=== PATIENT | female | born 1940 | race African-American/Black ===

== ENCOUNTER → 2017-02-12 | Outpatient (CLI) | payer MEDICARE ==
[2017-01-22 05:51] VITALS: BP 128/73
[~2017-02-12] MED LIST: AMLO5TAB2 PO; ASPI-482 PO; CRESTOR20 MG PO; IRBE300T3 PO; METH2.5T25 PO; METO-269 PO; METO25TA4 PO; PANT40TA3 PO; PARO10TA24 PO; TRAM50TA PO; TRIA1CAP3 PO; VALS160T3 PO; [UNRECOGNIZED DRUG - CODE] IM
--- NOTE | 2017-02-12 11:06 | RAD ---
Indication:Left-sided abdominal pain Grayscale images of the abdomen were obtained. Comparison none note is made of a CT examination of the abdomen and pelvis 03/30/2016 Liver:No focal mass is seen in the visualized liver. The main portal vein is minimally prominent Gallbladder:Normal. The common bile duct diameter of approximately 6 mm is normal Spleen:not optimally visualized but grossly normal Pancreas:As visualized normal Kidneys:Somewhat small but otherwise normal Abdominal aorta and IVC:Normal Ancillary findings:None Impression:No significant finding on abdominal ultrasound
--- NOTE | 2017-02-12 11:11 | RAD ---
Indication pain. Transabdominal scans were obtained. The history of hysterectomy several years earlier has been provided. The status of the ovaries is uncertain. Note is made of a CT examination of the abdomen and pelvis 03/30/2016. The uterus is not seen compatible with the surgical history. No significant free fluid was present. A definite abnormality is not apparent IMPRESSION: No acute or significant finding seen on pelvic ultrasound exam
== END | disposition home or self-care (01) ==
LOC: US 09:23
PROVIDERS: ATTEND Internal Medicine
DX: R06.89 Other abnormalities of breathing (principal); R10.11 Right upper quadrant pain; R10.12 Left upper quadrant pain; R10.31 Right lower quadrant pain
CPT/HCPCS: 76700; 76856

== ENCOUNTER 2017-10-02 03:38 | Emergency (ER) | payer MEDICARE, MEDICAID ==
[~2017-10-02] VITALS: Ht 165.1 cm; Wt 68.0 kg
[~2017-10-02 03:38] MED LIST changes: +CARV12.5 PO; +LOSA25TA4 PO; -PARO10TA24 PO; +PARO10TA57 PO; +[UNRECOGNIZED DRUG - CODE] IM; -[UNRECOGNIZED DRUG - CODE] IM
[2017-10-02 03:50] VITALS: BP 165/82
[2017-10-02] MEDS ORDERED: CEPH-264 PO (04:07)
[2017-10-02] MEDS ORDERED: METH4TAB2 PO (04:07)
--- NOTE | 2017-10-02 04:07 | PHYS DOC ---
Past Medical History Past Medical History: High Cholesterol, Hypertension, Other Additional Past Medical Histor: bleeding ulcer with bloot transfusion; rheumatic heart disease Past Surgical History: Hysterectomy, Other Additional Past Surgical Histo: hemorrhoidectomy Additional Information: Non smoker Alcohol Use: Rarely Drug Use: None Adult General Chief Complaint Chief Complaint: UPPER EXTREMITY SWELLING HPI HPI Patient is a 77 year old female who presents with bilateral hand swelling; Left > right. She was in her storage area "digging around' and then on evening she noticed swelling. The left hand "had some bumps on it." No other lesions. The left hand is more swollen and now is warm. The swelling extends up her forearm. She can feel her fingers and move them. her right hand has mild swelling; no wounds. No fever. She feels well otherwise. She receives Bicillin monthly "forever" for RHD. Review of Systems Review of Systems Constitutional: Denies fever or chills Eyes: Denies change in visual acuity, redness, or eye pain HENT: Denies nasal congestion or sore throat Respiratory: Denies cough or shortness of breath Cardiovascular: No chest pain GI: Denies abdominal pain, nausea, vomiting, bloody stools or diarrhea : Denies dysuria or hematuria Musculoskeletal: Denies back pain or joint pain. Hands swollen. Integument: Denies rash or skin lesions Neurologic: Denies headache, focal weakness or sensory changes All other systems were reviewed and found to be within normal limits, except as documented in this note. Current Medications Current Medications Current Medications Medications (Trade) Dose Ordered Sig/Sandy Start Time Stop Time Status Last Admin Dose Admin Cephalexin HCl (Keflex) 500 mg 1X ONCE 10/02/17 04:30 10/02/17 04:31 Prednisone (Prednisone) 30 mg 1X ONCE 10/02/17 04:30 10/02/17 04:31 Allergies Allergies Allergies Coded Allergies Type Severity Reaction Last Updated Verified Sulfa (Sulfonamide Antibiotics) Allergy Intermediate 09/13/17 Yes acetaminophen Allergy Intermediate 09/13/17 Yes codeine Allergy Intermediate 09/13/17 Yes propoxyphene Allergy Intermediate Hives 09/13/17 Yes atorvastatin Adverse Reaction Severe rhadomyolysis 09/13/17 Yes lisinopril Adverse Reaction Intermediate cough 09/13/17 Yes zinc Adverse Reaction Intermediate Nausea 09/13/17 Yes Physical Exam Physical Exam Constitutional: Well developed, well nourished, no acute distress, non-toxic appearance. HENT: Normocephalic, atraumatic, bilateral external ears normal, oropharynx moist, no oral exudates, nose normal. Eyes: PERRLA, EOMI, conjunctiva normal, no discharge. Neck: Normal range of motion, no tenderness, supple, no stridor. Cardiovascular:Heart rate regular rhythm, Systolic murmur Lungs & Thorax: Bilateral breath sounds clear to auscultation Abdomen: Bowel sounds normal, soft, no tenderness, no masses, no pulsatile masses. Skin: Warm, dry, no erythema, no rash. Back: No tenderness, no CVA tenderness. Extremities: No tenderness, no cyanosis, no clubbing, ROM intact. Left hand: diffuse swelling of dorsum; slight warmth. Small raised maculopapular lesion to ulnar aspect. Some swelling on dorsum of forearm. No red streaking. Left hand with minimal swelling to dorsum; none of wrist or forearm. NO pedal or ankle edema. No lymphangitis. Neurologic: Alert and oriented X 3, normal motor function, normal sensory function, no focal deficits noted. Psychologic: Affect normal, judgement normal, mood normal. Current Patient Data Vital Signs Vital Signs Date Time Temp Pulse Resp B/P (MAP) Pulse Ox O2 Delivery O2 Flow Rate FiO2 10/02/17 03:50 98.5 69 16 165/82 (109) 97 Room Air 98.5 Course & Med Decision Making Course & Med Decision Making Evaluated patient. The swelling is more pronounced on left hand and has a lesions that may be a bite. She also has some warmth. The right is minimally swollen. May be spider bite? no lymphangitis. However the right hand is involved so ? allergic reaction to something in her storage room where she was using her hands to move and explore items? Dosed here prednisone and keflex here. Needs close follow up. Given return precautions and to follow up with PCP on Wednesday. Patient feels comfortable with that plan. Needs to elevate hands as well. I have spoken with the patient and/or caregivers. I have explained the patient' s condition, diagnosis and treatment plan based on the information available to me at this time. I have answered the patient's and/or caregiver's questions and addressed any concerns. The patient and/or caregivers have as good an understanding of the patient's diagnosis, condition and treatment plan as can be expected at this point. The patient's condition is stable and appropriate for discharge from the emergency department. The patient will pursue further outpatient evaluation with the primary care physician or other designated or consulting physician as outlined in the discharge instructions. The patient and/or caregivers are agreeable to this plan of care and follow-up instructions have been explained in detail. The patient and/or caregivers have received these instructions in written format and have expressed an understanding of the discharge instructions. The patient and/or caregivers are aware that any significant change in condition or worsening of symptoms should prompt an immediate return to this or the closest emergency department or a call to 911. Dragon Disclaimer Dragon Disclaimer This electronic medical record was generated, in whole or in part, using a voice recognition dictation system. Departure Departure Impression: Primary Impression: Cellulitis and abscess of hand Additional Impressions: Spider bite Allergic reaction Disposition: HOME, SELF-CARE Referrals: BRENDA BELCHER MD (PCP) Patient Instructions: Cellulitis, Spider Bite Additional Instructions: IT IS UNCLEAR WHAT IS CAUSING THE SWELLING. THAT MAY BE A SPIDER BITE ON YOUR LEFT HAND. IT DOES APPEAR TO HAVE A SUPERFICIAL INFECTION. THE RIGHT HAND IS MINIMALLY INVOLVED BUT SINCE BOTH HANDS ARE SWOLLEN IT MAY ALSO BE AN ALLERGIC REACTION TO SOMETHING IN YOUR STORAGE ROOM. YOU WERE GIVEN PREDNISONE STEROID PILLS AND AN ANTIBIOTIC. WATCH YOUR HANDS CLOSELY. YOU NEED TO BE RECHECKED ON WEDNESDAY. IF YOUR SYMPTOMS CHANGE OR WORSEN PLEASE RETURN IMMEDIATELY. Scripts Cephalexin (KEFLEX) 500 Mg Capsule 1 CAP PO TID, #21 CAP Prov: KIRA SORIANO MD 10/02/17 Methylprednisolone (MEDROL) 4 Mg Tab.ds.pk 1 PKG PO UD, #1 PKG Prov: KIRA SORIANO MD 10/02/17 Problem Qualifiers Additional Impressions: Spider bite Encounter type: initial encounter Injury intent: undetermined intent Qualified Codes: T63.304A - Toxic effect of unspecified spider venom, undetermined, initial encounter Allergic reaction Encounter type: initial encounter Qualified Codes: T78.40XA - Allergy, unspecified, initial encounter KIRA SORIANO MD Oct 02, 2017 04:07
[2017-10-02] MEDS ORDERED: predniSONE 10 MG TABLET PO ONE (04:30)
[2017-10-02] MEDS ORDERED: CEPHALEXIN 250 MG CAPSULE. PO ONE (04:30)
== END 2017-10-02 04:21 | disposition home or self-care (01) ==
LOC: ER 03:38
DX: T63.301A Toxic effect of unspecified spider venom, accidental (unintentional), initial encounter (principal); L03.114 Cellulitis of left upper limb; T78.40XA Allergy, unspecified, initial encounter; Z88.2 Allergy status to sulfonamides; I10 Essential (primary) hypertension; E78.00 Pure hypercholesterolemia, unspecified; Z88.5 Allergy status to narcotic agent; Z88.6 Allergy status to analgesic agent; Z88.8 Allergy status to other drugs, medicaments and biological substances; W57.XXXA Bitten or stung by nonvenomous insect and other nonvenomous arthropods, initial encounter; Y93.89 Activity, other specified; Y99.8 Other external cause status; Y92.89 Other specified places as the place of occurrence of the external cause
CPT/HCPCS: 99283; J7512

== ENCOUNTER → 2018-08-30 | Day surgery (SDC) | payer MEDICARE, OTHER ==
[~2018-08-30] MED LIST changes: -AMLO5TAB2 PO; +AMLO5TAB7 PO; +CEPH-264 PO; +IV RINGERS,LACTATED 1000ML 1,000 ML IV SCH; +LIDOCAINE 1% PF 2 ML VIAL. ID PRN; -LOSA25TA4 PO; +LOSA25TA5 PO; +METH4TAB2 PO; +MIDAZOLAM HCL/PF 2 MG/2 ML VIAL. IV PRN; +PROPOFOL 20 ML IV ONE; +fentaNYL PF VIAL 100 MCG/2 ML VIAL IV PRN
--- NOTE | 2018-08-30 10:54 | PDOC1 ---
HISTORY & PHYSICAL H&P Cheyenne Lara [id number] 1940 02/08/2018 03:30 PM 10/25 [place] [facility], [facility] OUR PATIENTS COME FIRST [address] [place] [address]. [phone] Patient: Cheyenne Lara Date of : 1940 Date: 02/08/2018 3:30 PM Visit Type: Office Visit This 77 year old female presents for Screening colonoscopy. History of Present Illness: 1. Screening colonoscopy Prior screening: colonoscopy. Risk Factors: h/o colon polyp. Pertinent negatives include abdominal pain, change in bowel habits, change in stool caliber, constipation, decreased appetite, diarrhea, melena, nausea, rectal bleeding, vomiting, weight gain and weight loss. Additional information: No family history of colon cancer, No family history of Crohn's/colitis, No NSAID/ ASA use, Had three colonoscopy 2009,2012 [id number]. All the time had colonic polyp removed. INTAKE COMMENTS: Intake Comments: Nurse note: Pt's last colonoscopy was 2014 findings colon polyps PROBLEM LIST: Problem Description Onset Date Chronic Notes Epigastric pain 03/25/2016 Depression 03/14/2015 Mitral valve disorder 10/29/2009 Y Mapped from [facility] Chronic Conditions table on 05/14/2014 by the ICD9 to SNOMED Bulk Mapping Utility. The mapped diagnosis code was Mitral valve disorders, 424.0, added by Cabrera Flanagan, with responsible provider . Onset date 10/29/2009; last addressed on 10/12/2013. Aortic valve disorder 10/29/2009 Y Mapped from [facility] Chronic Conditions table on 05/14/2014 by the ICD9 to SNOMED Bulk Mapping Utility. The mapped diagnosis code was Aortic valve disorders, 424.1, added by Cabrera Flanagan, with responsible provider . Onset date 10/29/2009; last addressed on 11/30/2013. Pulmonary valve disorder 10/29/2009 Y Mapped from [facility] Chronic Conditions table on 05/14/2014 by the ICD9 to SNOMED Bulk Mapping Utility. The mapped diagnosis code was Pulmonary valve disorders, 424.3, added by Cabrera Flanagan, with responsible provider . Onset date 10/29/2009; last addressed on 10/29/2009. Hyperlipidemia 10/29/2009 Y Mapped from [facility] Chronic Conditions table on 2013 by the ICD9 to SNOMED Bulk Mapping Utility. The mapped diagnosis code was Other and unspecified hyperlipidemia, 272.4, added by Cabrera Flanagan, with responsible provider . Onset date 10/29/2009; last addressed on 11/30/2013. Benign essential hypertension 10/29/2009 Y Mapped from [facility] Chronic Conditions table on 05/14/2014 by the ICD9 to SNOMED Bulk Mapping Utility. The mapped diagnosis code was Benign essential hypertension, 401.1, added by Cabrera Mariscal, with responsible provider . Onset date 10/29/2009; last addressed on . Anxiety state 10/29/2009 Y Mapped from [facility] Chronic Conditions table on 2013 by the ICD9 to SNOMED Bulk Mapping Utility. The mapped diagnosis code was Anxiety state, unspecified, 300.00, added by Cabrera Flanagan, with responsible provider . Onset date 10/29/2009; last addressed on 04/06/2013. Degenerative joint disease involving multiple joints 10/29/2009 Y Mapped from [facility] Chronic Conditions table on 05/14/2014 by the ICD9 to SNOMED Bulk Mapping Utility. The mapped diagnosis code was Osteoarthrosis, generalized, involving multiple si, 715.09, added by Cabrera Flanagan, with responsible provider . Onset date 10/29/2009; last addressed on 10/29/2009. Osteoporosis 10/29/2009 Y Mapped from [facility] Chronic Conditions table on 2013 by the ICD9 to SNOMED Bulk Mapping Utility. The mapped diagnosis code was Osteoporosis, unspecified, 733.00, added by Cabrera Flanagan, with responsible provider . Onset date 10/29/2009; last addressed on 10/29/2009. Laceration of lip, subsequent encounter 10/03/2015 Generalized abdominal pain 04/08/2016 Laceration of lip, initial encounter 09/25/2015 Blunt trauma of face, initial encounter 09/25/2015 Hernia 04/02/2016 Encounter for Medicare annual wellness exam 04/02/2016 Y Hernia of abdominal cavity 04/02/2016 Midline thoracic back pain 09/05/2015 Midline low back pain without sciatica 09/05/2015 Dysuria 07/02/2016 Y Helicobacter pylori gastritis (chronic gastritis) 09/09/2015 Helicobacter pylori gastritis 12/10/2015 Rheumatic fever with heart involvement 03/25/2010 Y Mapped from [facility] Chronic Conditions table on 09/05/2014 by Luba Damon. The mapped diagnosis code was Rheumatic fever with heart involvement,391, added by Jan Sidhu , with responsible provider Jan Sidhu. Onset date 03/25/2010; last addressed on . Glaucoma 10/29/2009 Y Mapped from [facility] Chronic Conditions table on 09/05/2014 by Luba Damon. The mapped diagnosis code was Glaucoma,365, added by Cabrera Flanagan. Onset date 10/29/2009; last addressed on 10/29/2009. 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 12/05/2015 PAST MEDICAL/SURGICAL HISTORY (Detailed) Disease/disorder Onset Date Management Date Comments Hysterectomy cataract surgery 02/2012 lens implant Aortic regurgitation aortic valve sclerosis without stenosis Cardiac arrhythmias Colonic polyps colonoscopy with biopsy 02/09/2013 Colonic polyps-tubular adenoma colonoscopy with biopsy 12/04/2009 Glaucoma Rubio Funk Hemorrhoids hemorrhoidectomy histoplasmosis hypertension Mitral regurgitation SBE prophylaxis obesity Polyps, colon polypectomy rhabdomylosis Rheumatic fever bicillin 1.2 mil units monthly Rheumatic fever with heart involvement DIAGNOSTICS HISTORY: Test Ordered Interpretation Result completed DEXA scan 12/11/2008 osteoporesis 12/11/2008 Mammogram 11/27/2008 Normal 11/27/2008 Scan MRI 10/06/2009 LS spine early DDD 10/06/2009 Stress Test 08/06/2008 Normal EF 73% 08/06/2008 EKG 06/27/2008 SB 40's 06/27/2008 Echocardiogram 07/18/2009 Abnormal EF 65% MR/MS TR AR AV sclerosis without stenosis 07/18/2009 COLONOSCOPY AND BIOPSY 12/12/2009 Abnormal colonic polyp two, Poor bowel prep.BX tubular adenoma 12/12/2009 ELECTROCARDIOGRAM, COMPLETE 02/07/2010 SR 02/07/2010 Echocardiogram 11/08/2009 Abnormal mild AV regurg, Trace pulmonic valve regurg & tricuspid regurg. Rheumatic HD w MV thickening and mild Mitral stenosis 2009 ELECTROCARDIOGRAM, COMPLETE 11/27/2010 11/27/2010 Colonoscopy 01/11/2013 abnormal Imp: Polyp in the transverse colon(bx), polyp in the proximal ascending colon(poylpectomy), Grade 1 internal hemorrhoids BX: hyperplastic polyp, tubular adenoma, multiple fragments. 02/09/2013 EGD 07/03/2015 abnormal Imp: Hiatal hernia. No evidence of any active ulceration seen. Antral bx performed to evaluate for eradication of h-pylori. BX : Gastric andtral type mucosa with mild chronic active gastritis, minimal activity. A rare H.pylori organism present on immunohistochemical stain. 2014 Test Ordered Ordering Comments Modifier DEXA scan 12/11/2008 Diagnostic Images Mammogram 11/27/2008 Diagnostic Images Scan MRI 10/06/2009 Diagnostic Images Stress Test 08/06/2008 Cardiac Studies EKG 06/27/2008 Cardiac Studies Echocardiogram 07/18/2009 Cardiac Studies COLONOSCOPY AND BIOPSY 12/12/2009 Gastroenterology ELECTROCARDIOGRAM, COMPLETE 02/07/2010 Echocardiogram 11/08/2009 Cardiac Studies ELECTROCARDIOGRAM, COMPLETE 11/27/2010 SR Pac Colonoscopy 01/11/2013 EGD 07/03/2015 Medications (Active): Started Medication Directions Instruction Stopped 05/20/2015 Bicillin L-A 1,200,000 unit/2 mL intramuscular syringe inject 2 milliliter ([id number]) by intramuscular route every 4 weeks Diagnosis: Rheumatic heart disease 03/02/2019 08/13/2017 Coreg 12.5 mg tablet take 1/2 tablet by oral route 2 times every day with food 12/24/2017 Crestor 20 mg tablet TAKE 1 TABLET DAILY 12/21/2017 Diflucan 150 mg tablet take 1 tablet by oral route once 01/27/2018 losartan 25 mg tablet TAKE 1 TABLET BY ORAL ROUTE EVERY DAY 03/14/2015 Paxil 10 mg tablet take 1 tablet by oral route at bedtime 11/15/2017 PEPCID 20 MG TABLET TAKE 1 TABLET BY ORAL ROUTE 2 TIMES EVERY DAY 09/08/2017 TIZANIDINE HCL 2 MG TABLET TAKE 1 TABLET AT BEDTIME NEEDED 10/11/2017 tramadol 50 mg tablet take 1 tablet by oral route every 8 hours as needed 07/06/2016 Vitamin D2 50,000 unit capsule take 1 capsule by oral route every week When 12 weeks medication completed, begin Vitamin D3 1000u daily. Allergies: Ingredient Reaction Medication Name Comment LISINOPRIL COUGH ACETAMINOPHEN Rash, Swelling Tylenol CODEINE Rash ZINC Upset Stomach ATORVASTATIN CALCIUM rhabdomylosis Lipitor SULFA (SULFONAMIDE ANTIBIOTICS) Rash PROPOXYPHENE HCL Darvon REVIEW OF SYSTEMS System Neg/Pos Details Constitutional Negative Chills, fever, malaise, weight gain and weight loss. ENMT Negative Sore throat. Eyes Negative Double vision. Respiratory Negative Dyspnea and wheezing. Cardio Negative Chest pain and irregular heartbeat/palpitations. GI Positive See HPI. GI Negative Abdominal pain, change in bowel habits, change in stool caliber, constipation, decreased appetite, diarrhea, melena, nausea, see HPI, rectal bleeding and vomiting. Negative Dysuria and hematuria. Endocrine Negative Cold intolerance and heat intolerance. Psych Negative Anxiety. Integumentary Negative Hives and rash. MS Negative Joint pain. Isaias/Lymph Negative Easy bleeding and easy bruising. Allergic/Immuno Negative Food allergies. VITAL SIGNS Time BP mm/Hg Pulse /min Resp /min Temp F Ht ft Ht in Ht cm Wt lb Wt kg BMI kg/ m2 BSA m2 O2 Sat% 3:37 PM 110/60 62 16 98.1 5.0 5.50 166.37 142.00 64.410 23.27 97 MEASURED BY Time Measured by 3:37 PM Ramiro Mendez PHYSICAL EXAM: Exam Findings Details Constitutional Normal Well developed. Eyes Normal Conjunctiva - Right: Normal, Left: Normal. Sclera - Right: Normal, Left: Normal. Nasopharynx Normal Lips/teeth/gums - Normal. Neck Exam Normal Inspection - Normal. Thyroid gland - Normal. Respiratory Normal Inspection - Normal. Auscultation - Normal. Cardiovascular Normal Regular rate and rhythm. No murmurs, gallops, or rubs. Abdomen Normal Inspection - Normal. Anterior palpation - No guarding. No abdominal tenderness. No hepatic enlargement. No splenic enlargement. No hernia. No Ascites. Skin Normal Inspection - Normal. Extremity Normal No edema. Psychiatric Normal Oriented to time, place, person, and situation. Appropriate mood and effect. Assessment/Plan # Detail Type Description 1. Assessment History of colon polyps (Z86.010). Patient Plan schedule colonoscopy at [facility] Plan Orders Further diagnostic evaluations ordered today include(s) Colonoscopy to be performed today. She is to schedule a follow-up visit with Isrrael Sidhu MD upon completion of work-up Electronically signed by: Isrrael Sidhu MD 02/08/2018 03:52 PM Document generated by: Isrrael Sidhu 02/08/2018 03:52 PM Kt Forman MD, Family Practice; Dakota Guillen MD Internal Medicine; Rashard Bergeron MD, Internal Medicine; Jan Sidhu MD Internal Medicine; Isrrael Sidhu MD, Gastroenterology; Richard Banegas MD, Rheumatology, JNikolai Deutsch APRN ------ 08/30/18 Patient seen and examined. No change in H&P. ISRRAEL SIDHU MD Aug 30, 2018 10:54
[2018-08-30 12:42] VITALS: BP 167/80
--- NOTE | 2018-08-31 16:12 | PATHOLOGY ---
[facility] Accession Number: [id number] . 01 Material submitted: . PART A: DISTAL ASCENDING COLON POLYP PART B: DISTAL ASCENDING COLON POLYP PART C: PROXIMAL ASCENDING COLON POLYP PART D: CECUM POLYP PART E: TRANSVERSE COLON POLYP . 01 Clinician provided ICD-10: n . 01 Clinical history: . Hx polyps . 02 Diagnosis: A. Colon biopsies, distal ascending colon polyp: - Tubular adenoma. . B. Colon biopsy, distal ascending colon polyp: - Tubular adenoma. . C. Colon biopsies, proximal ascending colon polyp: - Tubular adenoma. . D. Colon biopsies, cecum polyp: - Tubular adenoma. . E. Colon biopsy, transverse colon polyp: - Tubular adenoma. . (JPM:vjm;08/31/2018) /08/31/2018 . 02 Comment: There is no high grade dysplasia or evidence of malignancy. . (JPM:vjm;08/31/2018) . 02 Electronically signed: . Tony French MD, Pathologist NPI- [id number] . 01 Gross description: . A. Received in formalin labeled "Lara, [place], distal ascending colon polyp," are 2 segments of pabon soft tissue measuring 0.9 x 0.3 x 0.3 cm in aggregate dimensions and ranging from 0.4 to 0.5 cm in maximum dimension. The specimen is submitted entirely in cassette A1. . B. Received in formalin labeled "Lara, [place], distal ascending colon polyp," is a single segment of pabon soft tissue measuring 0.5 cm in maximum dimension. The specimen is entirely submitted in cassette B1. . C. Received in formalin labeled "Lara, [place], ascending colon BX," are multiple segments of pabon soft tissue measuring 2.0 x 0.6 x 0.3 cm in aggregate dimensions. The specimen is filtered and entirely submitted in cassette C1. . D. Received in formalin labeled "Lara, [place], cecum polyp," are multiple segments of pabon soft tissue measuring 2.0 x 0.6 x 0.2 cm in aggregate dimensions. The specimen is filtered and entirely submitted in cassette D1. . E. Received in formalin labeled "Lara, [place], transverse colon polyp," is a single segment of pabon soft tissue measuring 0.5 cm in maximum dimension. The specimen is entirely submitted in cassette E1. (TSD; 08/30/2018) TOB/TOB . 02 Pathologist provided ICD-10: D12.2, D12.0, D12.3, Z86.010 . 02 CPT . 988496, 290908, [id number], [id number], [id number] Specimen Comment: A courtesy copy of this report has been sent to Specimen Comment: [phone]. Specimen Comment: Report sent to Performed at: 01 [facility] [address] [place], [place] [id number] MD Chase Riddle MD Phone: [phone] Performed at: [facility] [address] [place], [place] [id number] MD Tony French MD Phone: [phone]
== END | disposition home or self-care (01) ==
LOC: ENDOS 10:35
PROVIDERS: ATTEND Internal Medicine Gastroenterology
DX: Z12.11 Encounter for screening for malignant neoplasm of colon (principal); D12.0 Benign neoplasm of cecum; D12.2 Benign neoplasm of ascending colon; D12.3 Benign neoplasm of transverse colon; Z86.010 Personal history of colon polyps; F41.9 Anxiety disorder, unspecified; I10 Essential (primary) hypertension; F32.9 Major depressive disorder, single episode, unspecified; E78.00 Pure hypercholesterolemia, unspecified; M19.90 Unspecified osteoarthritis, unspecified site; Z88.6 Allergy status to analgesic agent; Z88.5 Allergy status to narcotic agent; Z88.8 Allergy status to other drugs, medicaments and biological substances; Z88.2 Allergy status to sulfonamides; Z98.890 Other specified postprocedural states; Z79.899 Other long term (current) drug therapy
CPT/HCPCS: 45385; 88305; J2704; 45380

== ENCOUNTER 2018-08-31 08:35 | Emergency (ER) | payer MEDICARE, OTHER ==
[~2018-08-31] VITALS: Ht 165.1 cm; Wt 64.4 kg
[~2018-08-31 08:35] MED LIST changes: -IV RINGERS,LACTATED 1000ML 1,000 ML IV SCH; -LIDOCAINE 1% PF 2 ML VIAL. ID PRN; -MIDAZOLAM HCL/PF 2 MG/2 ML VIAL. IV PRN; -PROPOFOL 20 ML IV ONE; -fentaNYL PF VIAL 100 MCG/2 ML VIAL IV PRN
[2018-08-31 09:30] LABS: BASO % 0 % (0-3); EOS % 0 % (0-3); HEMOGLOBIN 13.5 g/dL (12.0-15.5); LYMPH # 1.2 x10^3/uL (1.0-4.8); LYMPH % 14 % (24-48); MEAN CORPUSCULAR HEMOGLOBIN 30 pg (25-35); MEAN CORPUSCULAR HGB CONC 34 g/dL (31-37); MEAN CORPUSCULAR VOLUME 89 fL (79-100); MONO # 0.4 x10^3/uL (0.0-1.1); MONO % 5 % (0-9); NEUT # 6.8 x10^3uL (1.8-7.7); NEUT % 81 % (31-73); PLATELET COUNT 173 x10^3/uL (140-400); RED BLOOD COUNT 4.48 x10^6/uL (3.50-5.40); RED CELL DISTRIBUTION WIDTH 13.3 % (11.5-14.5); WHITE BLOOD COUNT 8.4 x10^3/uL (4.0-11.0)
[2018-08-31 09:39] LABS: FECAL OB PT POSITIVE (NEG)
[2018-08-31 09:45] LABS: CALCIUM 9.9 mg/dL (8.5-10.1); GFR 65.2; POTASSIUM 3.6 mmol/L (3.5-5.1)
[2018-08-31 09:49] VITALS: BP 144/65
[2018-08-31 09:51] LABS: ALBUMIN 3.9 g/dL (3.4-5.0); ALBUMIN/GLOBULIN RATIO 0.9 (1.0-1.7); TOTAL BILIRUBIN 1.3 mg/dL (0.2-1.0); TOTAL PROTEIN 8.2 g/dL (6.4-8.2)
--- NOTE | 2018-08-31 10:05 | PHYS DOC ---
Past Medical History Past Medical History: High Cholesterol, Hypertension, Other Additional Past Medical Histor: bleeding ulcer with blood transfusion; rheumatic heart disease Past Surgical History: Hysterectomy, Other Additional Past Surgical Histo: hemorrhoidectomy Alcohol Use: Rarely Drug Use: None Adult General Chief Complaint Chief Complaint: BLOODY STOOL [facility] HPI Patient is a 78 year old female who presents with blood in her stool. The patient had a colonoscopy done yesterday with removal of 7 polyps. She states that she noticed the blood in the stool last night and then again this morning. She states that she has a history of anemia with a rectal bleed. She was worried about her blood levels and states that on her paperwork it told her to present to the emergency department if she noticed bleeding. Review of Systems Review of Systems Constitutional: Denies fever or chills [] Respiratory: Denies cough or shortness of breath [] Cardiovascular: No additional information not addressed in HPI [] GI: See history of present illness : Denies dysuria or hematuria [] Musculoskeletal: Denies back pain or joint pain [] Integument: Denies rash or skin lesions [] Neurologic: Denies headache, focal weakness or sensory changes [] Endocrine: Denies polyuria or polydipsia [] All other systems were reviewed and found to be within normal limits, except as documented in this note. Allergies Allergies Allergies Coded Allergies Type Severity Reaction Last Updated Verified Sulfa (Sulfonamide Antibiotics) Allergy Intermediate 08/30/18 Yes acetaminophen Allergy Intermediate 08/30/18 Yes codeine Allergy Intermediate 08/30/18 Yes propoxyphene Allergy Intermediate Hives 08/30/18 Yes atorvastatin Adverse Reaction Severe rhadomyolysis 08/30/18 Yes lisinopril Adverse Reaction Intermediate cough 08/30/18 Yes zinc Adverse Reaction Intermediate Nausea 08/30/18 Yes Physical Exam Physical Exam Constitutional: Well developed, well nourished, no acute distress, non-toxic appearance. [] Cardiovascular:Heart rate regular rhythm, no murmur [] Lungs & Thorax: Bilateral breath sounds clear to auscultation [] Rectal: Rectal exam is negative for arian blood Abdomen: Bowel sounds normal, soft, no tenderness, no masses, no pulsatile masses. [] Skin: Warm, dry, no erythema, no rash. [] Back: No tenderness, no CVA tenderness. [] Extremities: No tenderness, no cyanosis, no clubbing, ROM intact, no edema. [] Neurologic: Alert and oriented X 3, normal motor function, normal sensory function, no focal deficits noted. [] Psychologic: Affect normal, judgement normal, mood normal. [] Current Patient Data Vital Signs Vital Signs Date Time Temp Pulse Resp B/P (MAP) Pulse Ox O2 Delivery O2 Flow Rate FiO2 08/31/18 09:49 52 16 144/65 (91) 98 Room Air 08/31/18 08:40 99.0 99.0 Lab Values Laboratory Tests Test 08/31/18 09:08 White Blood Count 8.4 x10^3/uL (4.0-11.0) Red Blood Count 4.48 x10^6/uL (3.50-5.40) Hemoglobin 13.5 g/dL (12.0-15.5) Hematocrit 40.0 % (36.0-47.0) Mean Corpuscular Volume 89 fL (79-100) Mean Corpuscular Hemoglobin 30 pg (25-35) Mean Corpuscular Hemoglobin Concent 34 g/dL (31-37) Red Cell Distribution Width 13.3 % (11.5-14.5) Platelet Count 173 x10^3/uL (140-400) Neutrophils (%) (Auto) 81 % (31-73) H Lymphocytes (%) (Auto) 14 % (24-48) L Monocytes (%) (Auto) 5 % (0-9) Eosinophils (%) (Auto) 0 % (0-3) Basophils (%) (Auto) 0 % (0-3) Neutrophils # (Auto) 6.8 x10^3uL (1.8-7.7) Lymphocytes # (Auto) 1.2 x10^3/uL (1.0-4.8) Monocytes # (Auto) 0.4 x10^3/uL (0.0-1.1) Eosinophils # (Auto) 0.0 x10^3/uL (0.0-0.7) Basophils # (Auto) 0.0 x10^3/uL (0.0-0.2) Stool Occult Blood Positive (NEG) Sodium Level 141 mmol/L (136-145) Potassium Level 3.6 mmol/L (3.5-5.1) Chloride Level 102 mmol/L (98-107) Carbon Dioxide Level 26 mmol/L (21-32) Anion Gap 13 (6-14) Blood Urea Nitrogen 14 mg/dL (7-20) Creatinine 1.0 mg/dL (0.6-1.0) Estimated GFR (Cockcroft-Gault) 65.2 BUN/Creatinine Ratio 14 (6-20) Glucose Level 129 mg/dL (70-99) H Calcium Level 9.9 mg/dL (8.5-10.1) Total Bilirubin 1.3 mg/dL (0.2-1.0) H Aspartate Amino Transferase (AST) 19 U/L (15-37) Alanine Aminotransferase (ALT) 37 U/L (14-59) Alkaline Phosphatase 86 U/L (46-116) Total Protein 8.2 g/dL (6.4-8.2) Albumin 3.9 g/dL (3.4-5.0) Albumin/Globulin Ratio 0.9 (1.0-1.7) L Laboratory Tests 08/31/18 09:08 Laboratory Tests 08/31/18 09:08 EKG EKG [] Radiology/Procedures Radiology/Procedures [] Course & Med Decision Making Course & Med Decision Making Pertinent Labs and Imaging studies reviewed. (See chart for details) []The patient's fecal occult is positive. This is not surprising given the patient's polyp removal yesterday. Her blood work was negative for acute anemia. She is to follow-up with her gastrointestinal specialist as scheduled or sooner if she notices continued bleeding. She is in agreement with this plan. Dragon Disclaimer Dragon Disclaimer This electronic medical record was generated, in whole or in part, using a voice recognition dictation system. Departure Departure Impression: Primary Impression: Hematochezia Disposition: 01 HOME, SELF-CARE Condition: STABLE Referrals: BRENDA BELCHER MD (PCP) Patient Instructions: Bloody Stools, [id number] Additional Instructions: Follow-up with your GI specialist for follow-up. If you notice increased bleeding call his office immediately. If you develop fever or abdominal pain return to the emergency department. JERAD BUI APRN Aug 31, 2018 10:05
== END 2018-08-31 10:20 | disposition home or self-care (01) ==
LOC: ER 08:35
DX: K92.1 Melena (principal); E78.00 Pure hypercholesterolemia, unspecified; I10 Essential (primary) hypertension; Z90.710 Acquired absence of both cervix and uterus; Z88.2 Allergy status to sulfonamides; Z88.5 Allergy status to narcotic agent; Z88.6 Allergy status to analgesic agent; Z88.8 Allergy status to other drugs, medicaments and biological substances; Z91.048 Other nonmedicinal substance allergy status
CPT/HCPCS: 36415; 80053; 82274; 85025; 99284

== ENCOUNTER → 2019-08-18 | Outpatient (CLI) | payer MEDICARE ==
[~2019-08-18] MED LIST changes: +AMLO5TAB10 PO; -AMLO5TAB7 PO; -LOSA25TA5 PO; +LOSA25TA54 PO; -PANT40TA3 PO; +PANT40TA77 PO; +PENICILLIN G BENZATHINE LA 1,200,000 UNIT/2 ML DISP.SYRIN. IM ONE
[2019-08-18 05:57] VITALS: BP 186/86
== END | disposition home or self-care (01) ==
LOC: OPS 05:38
PROVIDERS: ATTEND Internal Medicine
DX: I05.9 Rheumatic mitral valve disease, unspecified (principal); M81.0 Age-related osteoporosis without current pathological fracture; F41.9 Anxiety disorder, unspecified; E78.5 Hyperlipidemia, unspecified; E78.00 Pure hypercholesterolemia, unspecified; M19.90 Unspecified osteoarthritis, unspecified site; I10 Essential (primary) hypertension; F32.9 Major depressive disorder, single episode, unspecified; Z90.710 Acquired absence of both cervix and uterus; Z79.82 Long term (current) use of aspirin; Z79.899 Other long term (current) drug therapy; Z85.038 Personal history of other malignant neoplasm of large intestine
CPT/HCPCS: 96372; J0561

== ENCOUNTER → 2019-08-28 | Outpatient (CLI) | payer MEDICARE ==
[2019-08-18 05:57] VITALS: BP 186/86
[~2019-08-28] MED LIST changes: -PENICILLIN G BENZATHINE LA 1,200,000 UNIT/2 ML DISP.SYRIN. IM ONE
--- NOTE | 2019-08-28 10:55 | RAD ---
DATE: 08/28/2019. EXAM: MAMMO LISETH BRYAN MCCORD, BREAST RIGHT. HISTORY: Yearly screening. Right breast pain. COMPARISON: 07/05/2018, 06/07/2019. This study was interpreted with the benefit of Computerized Aided Detection (CAD). FINDINGS: Breast Density: HETERO The breast parenchyma is heterogenously dense, which could reduce sensitivity of mammography. Breast parenchyma level C.. Vascular calcifications are benign. There is no mammographic correlate for right breast pain. There are no suspicious masses, microcalcifications or architectural distortion. Sonographic evaluation was performed at the site of pain at the 10:00 position 5 cm from the nipple. The patient reports that she does not have symptoms currently. Sonography reveals only normal parenchyma. There is no sonographic correlate for breast pain. BI-RADS CATEGORY: 0 INCOMPLETE: NEEDS ADDITIONAL IMAGING EVALUATION AND/OR PRIOR MAMMOGRAMS FOR COMPARISON.. RECOMMENDED FOLLOW-UP: MAMPREV REQUEST FOR PREVIOUS MAMMOGRAM. 1. The patient's prior mammography will be obtained and reviewed. An addendum will be issued. PQRS compliance statement: Patient information was entered into a reminder system with a target due date (pending review of prior examinations) for the next mammogram. Mammography is a sensitive method for finding small breast cancers, but it does not detect them all and is not a substitute for careful clinical examination. A negative mammogram does not negate a clinically suspicious finding and should not result in delay in biopsying a clinically suspicious abnormality. "Our facility is accredited by the [employer] Mammography Program."
== END | disposition home or self-care (01) ==
LOC: MAMMO 08:56
PROVIDERS: ATTEND Specialist
DX: R92.1 Mammographic calcification found on diagnostic imaging of breast (principal)
CPT/HCPCS: 76641; 77066; G0279; 77062

== ENCOUNTER → 2020-03-08 | Outpatient (CLI) | payer MEDICARE, MEDICAID ==
[~2020-03-08] MED LIST changes: +IRBE300T23 PO; -IRBE300T3 PO; +PENICILLIN G BENZATHINE LA 1,200,000 UNIT/2 ML DISP.SYRIN. IM ONE
[2020-03-08 07:00] VITALS: BP 107/59
== END | disposition home or self-care (01) ==
LOC: OPS 06:54
PROVIDERS: ATTEND Internal Medicine
DX: I05.9 Rheumatic mitral valve disease, unspecified (principal); M81.0 Age-related osteoporosis without current pathological fracture; F41.9 Anxiety disorder, unspecified; I10 Essential (primary) hypertension; E78.5 Hyperlipidemia, unspecified; F32.9 Major depressive disorder, single episode, unspecified; M19.90 Unspecified osteoarthritis, unspecified site; E78.00 Pure hypercholesterolemia, unspecified; Z79.899 Other long term (current) drug therapy; Z90.710 Acquired absence of both cervix and uterus; Z79.82 Long term (current) use of aspirin
CPT/HCPCS: 96372; J0561

== ENCOUNTER → 2020-08-22 | Outpatient (CLI) | payer MEDICARE, MEDICAID ==
[2020-08-08 07:04] VITALS: BP 157/74
[~2020-08-22] MED LIST changes: +AMLO-186 PO; -AMLO5TAB10 PO; -PENICILLIN G BENZATHINE LA 1,200,000 UNIT/2 ML DISP.SYRIN. IM ONE
--- NOTE | 2020-08-22 17:41 | RAD ---
DATE: 08/22/2020 2:05 PM EXAM: MAMMO LISETH SCREENING BILATERAL HISTORY: Screening COMPARISON: 08/28/2019 Bilateral CC and MLO views of the breasts were performed. Bilateral breast tomosynthesis was performed in CC and MLO projections. This study was interpreted with the benefit of Computerized Aided Detection (CAD). FINDINGS: Breast Density: SCATTERED The breast parenchyma shows scattered fibroglandular densities. Breast parenchyma level B No suspicious masses, microcalcifications or architectural distortion is present to suggest malignancy in either breast. The visualized axillae are unremarkable. IMPRESSION: No mammographic evidence of malignancy. BI-RADS CATEGORY: 1 NEGATIVE RECOMMENDED FOLLOW-UP: 12M 12 MONTH FOLLOW-UP Annual screening mammography is recommended, unless clinically indicated sooner based on symptoms or change in physical exam. PQRS compliance statement: Patient information was entered into a reminder system with a target due date for the next mammogram. Mammography is a sensitive method for finding small breast cancers, but it does not detect them all and is not a substitute for careful clinical examination. A negative mammogram does not negate a clinically suspicious finding and should not result in delay in biopsying a clinically suspicious abnormality. "Our facility is accredited by the [employer] Mammography [employer]."
== END ==
LOC: MAMMO 14:00
PROVIDERS: ATTEND Internal Medicine
DX: Z12.31 Encounter for screening mammogram for malignant neoplasm of breast (principal)
CPT/HCPCS: 77063; 77067

== ENCOUNTER → 2021-10-15 | Outpatient (CLI) | payer MEDICARE, MEDICAID ==
[2021-10-10 06:03] VITALS: BP 139/82
--- NOTE | 2021-10-16 11:00 | RAD ---
INDICATION: 81 years of age asymptomatic female patient presents for screening mammography. Screening TECHNIQUE: Full field craniocaudal and mediolateral oblique images of both breasts were obtained usi ng digital technique with tomosynthesis and also analyzed with computer-aided detection software. . COMPARISON: 08/22/2020 09/07/2019. BREAST COMPOSITION: Category C: The breast tissue is heterogeneously dense, which could obscure detec tion of small masses. FINDINGS: No suspicious masses, microcalcifications or architectural distortion is present to suggest malignanc y in either breast. The visualized axillae are unremarkable. IMPRESSION: Stable bilateral mammogram. RECOMMENDATION: Annual screening mammography is recommended, unless clinically indicated sooner based on symptoms or change in physical exam. BIRADS 1: NEGATIVE This study was interpreted with the benefit of Computerized Aided Detection (CAD). Recommend routine screening in one year. Patient information is entered into the reminder system with a target due date for the next screening mammogram. Mammography is the most sensitive method for finding small breast cancers, but it does not detect the m all and is not a substitute for careful clinical examination. A negative mammogram does not negate a clinically suspicious finding and should not result in delay in biopsying a clinically suspicious a bnormality. "Our facility is accredited by the [employer] Mammography Program." Electronically signed by: Dakota Howard MD (10/16/2021 10:58 AM) [id number]
== END ==
LOC: MAMMO 12:59
PROVIDERS: ATTEND Internal Medicine
DX: Z12.31 Encounter for screening mammogram for malignant neoplasm of breast (principal)
CPT/HCPCS: 77063; 77067